=== PATIENT | female | born 1960 | race African-American/Black ===

== ENCOUNTER 2018-08-24 16:18 | Emergency (ER) | payer MEDICAID, OTHER ==
[~2018-08-24] VITALS: Ht 167.6 cm; Wt 204.0 kg
[2018-08-24] MEDS ORDERED: HYDROCODONE/ACETAMINOPHEN 5/325MG TABLET PO STA (17:14)
[2018-08-24] MEDS ORDERED: ONDANSETRON HCL 4MG/2ML INJ IV STA (17:14)
[2018-08-24] MEDS ORDERED: SODIUM CHLORIDE 0.9% 1,000 ML IV ONE (17:14)
[2018-08-24 17:40] LABS: BASOPHILS % 0.2 % (0.0-2.0); EOSINOPHILS % 1.6 % (0.0-5.0); HEMATOCRIT. 34.5 % (36.0-48.0); HEMOGLOBIN. 10.8 g/dL (12.0-16.0); LYMPHOCYTES % 8.4 % (20.0-50.0); MEAN CORPUSCULAR VOLUME 76.5 fL (81.0-99.0); MEAN PLATELET VOLUME 9.8 fl (7.4-10.4); MONOCYTES % 7.2 % (2.0-8.0); NEUTROPHILS % 82.6 % (40.0-76.0); PLATELET 113 x1000/uL (130-400); RED BLOOD CELL COUNT 4.51 mill/uL (4.2-5.4); RED CELL DISTRIBUTION WIDTH 18.6 % (11.6-14.6)
[2018-08-24 17:44] LABS: CHLORIDE 100 mEq/L (98-107)
[2018-08-24] MEDS ORDERED: ASPIRIN 81MG TABLET PO ONE (18:30)
[2018-08-24] MEDS ORDERED: HEPARIN 25,000 UNITS PREMIX 500 ML IV ONE (18:30)
[2018-08-24] MEDS ORDERED: HEPARIN 5000 UNITS/ML VIAL IV ONE (18:30)
[2018-08-24 18:59] LABS: INR 1.6; PARTIAL THROMBOPLASTIN TIME 36.6 sec (23.4-31.0); PROTHROMBIN TIME 16.4 sec (9.6-11.0)
[2018-08-24] MEDS ORDERED: SODIUM CHLORIDE 0.9% 500 ML IV NR (21:00)
[2018-08-24 21:52] LABS: CLARITY URINE TURBID (CLEAR); COLOR URINE DARK YELLOW (YELLOW); KETONES URINE NEGATIVE (NEGATIVE); LEUKOCYTE ESTERASE URINE 1+ (NEGATIVE); NITRITE URINE POSITIVE (NEGATIVE); OCCULT BLOOD URINE 3+ (NEGATIVE); PROTEIN URINE 3+ (NEGATIVE); SPECIFIC GRAVITY URINE 1.023 (1.005-1.030)
[2018-08-24] MEDS ORDERED: CEFTRIAXONE 1 G PREMIX 50 ML IV NR (22:00)
[2018-08-24 22:53] VITALS: BP 127/66
== END 2018-08-25 00:29 | disposition short-term general hospital (02) ==
LOC: ER 16:53 → CANBEDREQ 08-25 02:08
DX: I21.4 Non-ST elevation (NSTEMI) myocardial infarction (principal); I50.9 Heart failure, unspecified; N19 Unspecified kidney failure; M25.511 Pain in right shoulder; M25.562 Pain in left knee; M25.561 Pain in right knee; M25.571 Pain in right ankle and joints of right foot; W06.XXXA Fall from bed, initial encounter; Y93.89 Activity, other specified; Y92.89 Other specified places as the place of occurrence of the external cause; I45.10 Unspecified right bundle-branch block; K72.90 Hepatic failure, unspecified without coma; D72.829 Elevated white blood cell count, unspecified; E88.09 Other disorders of plasma-protein metabolism, not elsewhere classified
CPT/HCPCS: 36415; 71045; 73030; 73560; 73600; 76705; 80053; 81003; 83605; 83880; 84145; 84484; 85025; 85610; 85730; 87040; 87086; 93005; 96365; 96375; 96376; 99285; J1644; J2405; J7030